=== PATIENT | female | born 1990 | race Caucasian/White ===

== ENCOUNTER 2019-12-10 15:17 | Outpatient (CLI) | payer OTHER, SELFPAY ==
--- NOTE | ~2019-12-10 | US_ITS ---
EXAMINATION: US OB <= 14 weeks fetus DATE: 12/10/2019 16:20 INDICATION: First trimester dating TECHNIQUE: Real-time pelvic transabdominal and transvaginal ultrasound was performed. COMPARISON: None. FINDINGS: The uterus measures 9.0 x 6.1 x 8.0 cm. There is an intrauterine gestational sac. A yolk s ac is identified. heart motion is identified measuring 133 beats per minute (bpm) by M-mode Dop pler. The crown rump length measures 8 mm , which correlates with an estimated gestational age of 6 weeks and 5 day(s) (+/-) 4 day(s). The right ovary measures 3.1 x 2.1 x 2.0 cm. The left ovary measures 3.2 x 2.3 x 3.0 cm. There is nor mal vascular flow in the ovaries. There is no free fluid in the pelvis. IMPRESSION: 1. Live intrauterine with an estimated gestational age of 6 weeks and 5 day(s) (+/-) 4 day( s) and an estimated delivery date of 07/30/2020. Reviewed, dictated and finalized at location A. IMPRESSION: 1. Live intrauterine with an estimated gestational age of 6 weeks and 5 day(s) (+/-) 4 day(s) and an estimated delivery date of 07/30/2020.
== END 2019-12-10 15:18 | disposition home or self-care (01) ==
PROVIDERS: PCP Physician Assistant; Visit Provider Obstetrics & Gynecology
DX: Z34.81 Encounter for supervision of other normal pregnancy, first trimester (principal); Z3A.01 Less than 8 weeks gestation of pregnancy
CPT/HCPCS: 76801

== ENCOUNTER 2020-01-10 15:39 | Outpatient (CLI) | payer OTHER, SELFPAY ==
--- NOTE | ~2020-01-10 | US_ITS ---
EXAMINATION: US OB <= 14 weeks fetus DATE: 01/10/2020 16:17 INDICATION: Routine care during first trimester of TECHNIQUE: Real-time pelvic ultrasound utilizing both a transvaginal and transabdominal probe was pe rformed. The interpreting radiologist was not present for the study. COMPARISON: 12/10/2019 FINDINGS: The uterus measures 12.8 x 7.1 x 9.5 cm. There is an intrauterine gestational sac. A single living f etus is identified. The crown rump length measures 5.3 cm, which is concordant but at the upper range for the previously estimated gestational age of 11 weeks and 1 days based upon the crown rump length measurement on the earlier ultrasound. heart motion is identified measuring 157 beats per nara te (bpm) by M-mode Doppler. The right ovary measures 3.4 x 1.5 x 1.7 cm. The left ovary measures 3.3 x 2.4 x 2.4 cm. There is no free fluid in the pelvis. IMPRESSION: 1. Single living fetus with heart rate of 157 bpm. 2. [place]-rump length of 5.3 cm which concordant with but at the upper range of length for previously estimated gestational age by ultrasound of 11 weeks 1 day with ultrasound estimated date of delivery (JOSSUE) of 07/30/2020. Reviewed, dictated and finalized at location . RAL WORKERS
== END 2020-01-10 15:40 | disposition home or self-care (01) ==
PROVIDERS: PCP Physician Assistant; Visit Provider Obstetrics & Gynecology
DX: Z34.91 Encounter for supervision of normal pregnancy, unspecified, first trimester (principal); Z3A.11 11 weeks gestation of pregnancy
CPT/HCPCS: 76801

== ENCOUNTER 2020-02-29 12:35 | Outpatient (CLI) | payer OTHER, SELFPAY ==
--- NOTE | ~2020-02-29 | US_ITS ---
EXAMINATION: US OB /maternal detail DATE: 02/29/2020 13:38 INDICATION: anatomic survey. TECHNIQUE: Real-time ultrasound of the pelvis was performed. COMPARISON: Ultrasound 01/10/2020, 12/10/2019 FINDINGS: There is a single living fetus in variable presentation. The placenta is anterior, 3.6 cm from the c ervix. heart rate is 131 beats per minute (bpm). The amniotic fluid index is 12.1 cm, which is normal. The following biometric data were obtained: Biparietal diameter (BPD): 4.4 cm; head circumference (HC): 17.7 cm; abdominal circumference (AC): 15 .1 cm; femur length (FL): 3.0 cm. These measurements are concordant. Estimated weight is 319 g +/- 48 g, which correlates with >97th percentile when 07/30/20 is used as estimated date of delivery. As single measurements, these parameters are each equal to the following estimated gestational ages w ith ranges of +/- 2 standard deviations: BPD: 19 weeks 1 days (17 weeks 3 days - 20 weeks 6 days). HC: 20 weeks 1 days (18 weeks 5 days - 21 weeks 5 days). AC: 20 weeks 2 days (18 weeks 2 days - 22 weeks 3 days). FL: 19 weeks 2 days (17 weeks 4 days - 21 weeks 1 days). estimated gestational age based solely on measurements from this exam is 19 weeks 5 days +/- 1 weeks 3 days. The cerebral ventricles, cerebellum, cisterna magna, nuchal fold, and visualized portions of the spin e are normal. There are small choroid plexus cysts. The heart is normal. The diaphragm, stomach, kidn eys, and bladder are normal. There are two umbilical arteries to yield a 3-vessel cord. The cord inse rtion is normal. IMPRESSION: 1. Single living fetus in variable presentation. 2. Estimated weight is 319 g +/- 48 g, which correlates with >97th percentile when 07/30/20 is u sed as estimated date of delivery. This date was set by ultrasound on 12/10/19. 3. Choroid plexus cysts. Reviewed, dictated and finalized at location A. UCTION MATERIAL COORDINATOR IMPRESSION: 1. Single living fetus in variable presentation. 2. Estimated weight is 319 g +/- 48 g, which correlates with >97th perce ntile when 07/30/20 is used as estimated date of delivery. This date was set by [facility] on 12/10/19. 3. Choroid plexus cysts.
== END 2020-02-29 12:36 | disposition home or self-care (01) ==
PROVIDERS: PCP Physician Assistant; Visit Provider Obstetrics & Gynecology
DX: Z34.82 Encounter for supervision of other normal pregnancy, second trimester (principal); Z3A.19 19 weeks gestation of pregnancy
CPT/HCPCS: 76805

== ENCOUNTER 2020-03-24 11:37 | Observation (INO) | payer OTHER, SELFPAY ==
--- NOTE | ~2020-03-24 | US_ITS ---
EXAMINATION: US OB limited EXAM DATE: 03/24/2020 13:27 INDICATION: well being, placenta check. Vaginal bleeding. 2nd trimester. TECHNIQUE: Pelvic obstetrical transabdominal sonogram was performed by a technologist. There are mu ltiple grayscale and Doppler images available for interpretation. Comparison is made to prior examina tion from 02/29/2020. FINDINGS: There is a single fetus identified in transverse presentation with head to maternal r ight side, and a heart rate of 150 beats per minute. The placenta is located in the anterior position . Placental margin to internal cervical os distance is 4.3 cm. There is no sonographic evidence of retroplacental hemorrhage identified. The amniotic fluid index is 19.1 centimeters, which is normal. Amniotic fluid is hypoechoic rather than anechoic, could contain meconium or debris. IMPRESSION: 1. Single fetus in transverse presentation with heart rate 150 beats per minute. 2. Unremarkable anteriorly located placenta. 3. Normal NIR 19 cm. Reviewed, dictated and finalized at location A. NICS REPAIR TECHNICIAN IMPRESSION: 1. Single fetus in transverse presentation with heart rate 150 beats per minut e. 2. Unremarkable anteriorly located placenta. 3. Normal NIR 19 cm.
[2020-03-24 11:56] VITALS: BP 106/62; PULSE 85
[2020-03-24 12:00] VITALS: BP 108/66; PULSE 85
[2020-03-24 13:00] VITALS: BP 116/70; PULSE 83
--- NOTE | 2020-03-24 16:44 | OBADM ---
This patient, Marcelina Bond, admitted to the OB room OB Post 113 for observation. Patient/family oriented to hospital policies and general routines including ID bracelet, bed and alarms, visiting hours, pain management, procedures, bathroom and other care routines, personal items, smoking policy, room service/diet, and visiting hours. Patient/Family are encouraged to report perceived risks to care and to ask questions if they do not understand what they are told or what they should do.
--- NOTE | 2020-03-30 06:01 | PM.OBTRLD ---
OB - Triage/Final Diagnosis Visit Information Comments/Additional reasons for admission: I have assessed the risk for this patient, Marcelina Bond, and determined that she would benefit from observation care. Final Diagnosis (1) Spotting affecting : Code(s): O26.859 - Spotting complicating , unspecified trimester Status: Acute
== END 2020-03-24 13:52 | disposition home or self-care (01) ==
PROVIDERS: Admitting Provider Obstetrics & Gynecology; PCP Physician Assistant; Visit Provider Obstetrics & Gynecology
DX: O26.852 Spotting complicating pregnancy, second trimester (principal); Z3A.21 21 weeks gestation of pregnancy
CPT/HCPCS: 76815; G0378; G0379

== ENCOUNTER 2020-03-30 14:23 | Observation (INO) | payer OTHER, SELFPAY ==
[2020-03-30 15:03] VITALS: BP 114/58; PULSE 94
[2020-03-30 15:16] VITALS: BP 111/71; PULSE 106
[2020-03-30 15:33] VITALS: BMI 19.7
--- NOTE | 2020-04-28 20:56 | P.PNOB_ITS ---
OB - Triage/Final Diagnosis Visit Information Comments/Additional reasons for admission: I have assessed the risk for this patient, Marcelina Bond, and determined that she would benefit from observation care. Final Diagnosis (1) Premature uterine contractions causing threatened premature labor in second trimester: Code(s): O47.02 - False labor before 37 completed weeks of gestation, second trimester Status: Acute (2) PROM (premature rupture of membranes): Code(s): O42.90 - Premature rupture of membranes, unspecified as to length of time be tween rupture and onset of labor, unspecified weeks of gestation Status: Acute
== END 2020-03-30 15:25 | disposition home or self-care (01) ==
PROVIDERS: Admitting Provider Obstetrics & Gynecology; PCP Physician Assistant; Visit Provider Obstetrics & Gynecology
DX: O47.02 False labor before 37 completed weeks of gestation, second trimester (principal); Z3A.22 22 weeks gestation of pregnancy
CPT/HCPCS: G0378; G0379

== ENCOUNTER 2020-03-31 13:31 | Outpatient (RCR) | payer OTHER, SELFPAY ==
--- NOTE | ~2020-03-31 | US_ITS ---
EXAMINATION: US OB limited DATE: 03/31/2020 14:42 INDICATION: Abdominal injury. Second trimester. TECHNIQUE: Real-time ultrasound of the pelvis was performed. COMPARISON: Ultrasound 03/24/2020 FINDINGS: There is a single fetus in breech presentation. The placenta is anterior. heart rate is 144 be ats per minute (bpm). The amniotic fluid volume is subjectively normal. IMPRESSION: 1. Single living fetus in breech presentation. 2. Normal placenta. Reviewed, dictated and finalized at location A. AZZO WORKER APPRENTICE
--- NOTE | 2020-03-31 13:37 | PC.NURSE ---
Dr. Murillo informed of this pt's arrival after being unable to get U/S to check placenta done as an outpatient due to it not being preauthorized. Pt c/o lower abdominal tenderness since her fall yesterday. Denies leakage of fluid and vaginal bleeding. Order received to doppler FHT's and order U/S to check placenta. Pt is to PO hydrate.
--- NOTE | 2020-03-31 13:57 | PC.NURSE ---
Pt given water pitcher with instructions to PO hydrate. monitor applied.
--- NOTE | 2020-03-31 14:13 | PC.NURSE ---
Dr. Murillo on unit and viewed monitor tracing. OK to discontinue monitoring of this 22 wk .
[2020-03-31 14:17] VITALS: BP 102/56; PULSE 80
--- NOTE | 2020-03-31 14:45 | PC.NURSE ---
Dr. Murillo informed pt back from U/S, but report not available yet. OK to let pt go home.
--- NOTE | 2020-03-31 19:29 | PM.OBTRLD ---
OB - Triage/Final Diagnosis Visit Information Reason for evaluation: other (Abdominal trauma from [place] in her house) Comments/Additional reasons for admission: I have assessed the risk for this patient, Marcelina Bond, and determined that she would benefit from observation care. Evaluation Baseline heart rate: 140 Variability: Moderate (11-25) monitor accelerations: Present monitor decelerations: None Vital signs: Vital Signs - 24 hr 03/31/20 14:17 Pulse Rate 80 Blood Pressure 102/56 L Final Diagnosis (1) with 22 completed weeks gestation: Code(s): Z3A.22 - 22 weeks gestation of Status: Acute (2) History of blunt trauma to abdomen: Code(s): Z87.828 - Personal history of other (healed) physical injury and trauma Status: Acute
== END 2020-04-12 08:01 | disposition home or self-care (01) ==
LOC: ANHOBOP 13:31
PROVIDERS: PCP Physician Assistant; Visit Provider Obstetrics & Gynecology
DX: O99.891 Other specified diseases and conditions complicating pregnancy (principal); Z87.828 Personal history of other (healed) physical injury and trauma; Z3A.22 22 weeks gestation of pregnancy
CPT/HCPCS: 76815

== ENCOUNTER 2020-04-03 16:48 | Observation (INO) | payer OTHER, SELFPAY ==
[2020-04-03] VITALS (31 sets, daily range): BP systolic 102–120; BP diastolic 43–61; PULSE 88–114; RESP 20; TEMP 36.4–36.6; O2SAT 97–100; BMI 19.7
--- NOTE | ~2020-04-03 | US_ITS ---
EXAMINATION: US OB limited DATE: 04/03/2020 17:55 INDICATION: Cramping and leaking fluids. Positive rupture of membranes during second trimester pregna ncy. TECHNIQUE: Real-time ultrasound of the pelvis was performed. The interpreting radiologist was not pre sent for the study. COMPARISON: None. FINDINGS: There is a single living fetus in transverse lie with vertex to maternal right. The placenta is ante rior and not low-lying with caudal margin 9 cm the internal cervical os. Normal cervical length of 4. 8 cm with no evident funneling. heart rate is 139 beats per minute (bpm). The amniotic fluid in dex is 14.8 cm, which is normal (5th%-95%: 9.8-21.8 cm at 23 weeks estimated gestational age). IMPRESSION: 1. Single living fetus in transverse lie with heart rate of 139 bpm. 2. Normal anterior placenta and cervix with normal cervical length of 4.8 cm. 3. Normal amniotic fluid index of 14.8 cm. Reviewed, dictated and finalized at location A. OWAVE RADIO TECHNICIAN
--- NOTE | 2020-04-03 17:40 | OBADM ---
This patient, Marcelina Bond, admitted to the OB room OB Post 116 for observation. Patient/family oriented to hospital policies and general routines including ID bracelet, bed and alarms, visiting hours, pain management, procedures, bathroom and other care routines, personal items, smoking policy, room service/diet, and visiting hours. Patient/Family are encouraged to report perceived risks to care and to ask questions if they do not understand what they are told or what they should do.
[2020-04-03 18:18] LABS: Basophils Percent Auto 0.2 % (0.2-1.2); Eosinophils Absolute Auto 0.1 K/mm3 (0-0.3); Eosinophils Percent Auto 0.4 % (0-4.4); Hematocrit 33.6 % (37.0-47.0); Immature Granulocyte Absolute 0.05 K/mm3 (0.00-0.031); Immature Granulocyte Percent A 0.4 % (0-0.5); Lymphocytes Absolute Auto 1.35 K/mm3 (0.9-3.2); Lymphocytes Percent Auto 11.6 % (18.3-44.2); Mean Corpuscular HGB Conc 35.7 g/dl (32-36); Mean Corpuscular Hemoglobin 34.5 pg (26-34); Mean Corpuscular Volume 96.6 fl (80-100); Mean Platelet Volume 10.1 fl (7.4-10.4); Monocytes Absolute Auto 0.5 K/mm3 (0.1-0.6); Monocytes Percent Auto 4.5 % (2.6-8.5); Neutrophils Absolute Auto 9.7 K/mm3 (1.3-6.7); Neutrophils Percent Auto 82.9 % (45.5-73.1); Platelet Count Result 224 k/mm3 (150-375); Red Blood Count 3.48 M/mm3 (4.2-5.4); Red Cell Distribution Width 12.8 % (11.5-14.5); White Blood Count 11.7 K/mm3 (4.5-10.0)
[2020-04-03] MEDS: LACTATED RINGERS 1,000 ML 999 ML IV CONT (18:21)
[2020-04-03] MEDS: ceFAZolin 2 GM/D5W 50 ML 2 GM/50 ML BAG IVPB (18:22)
[2020-04-03 18:24] LABS: Add Urine Microscopic? YES; Amorphous Sediment Urine Few; Appearance Urine Clear (Clear); Bacteria Urine Trace /hpf; Bilirubin Urine Negative (Negative); Blood Urine Negative (Negative); Color Urine Colorless (Yellow); Glucose Urine UA Negative (Negative); Ketones Urine Negative (Negative); Leukocyte Esterase Ur 1+ LEU/UL (NEGATIVE); Nitrate Urine Negative (Negative); Protein Urine Negative (Negative); Squamous Epithelial Cell Urine Few /hpf (Few); Urobilinogen Urine Negative mg/dL (<2.0)
[2020-04-03] MEDS: TERBUTALINE SULFATE 1 MG/ML VIAL 0.25 MG SUB-Q ×2 (18:25→21:00)
[2020-04-03 18:26] LABS: Specific Grav Ur 1.003 (1.001-1.035)
[2020-04-03 18:30] LABS: Alanine Aminotransferase 35 U/L (4-35); Albumin Level 3.8 g/dL (3.5-5.1); Alkaline Phosphatase 98 U/L (38-126); Anion Gap 7 mmol/L (8-16); Aspartate Amino Transferase 32 U/L (14-36); Bilirubin,Total 0.4 mg/dL (0.2-1.3); Blood Urea Nitrogen 10 mg/dL (7-17); Calcium 8.9 mg/dL (8.4-10.2); Carbon Dioxide 23 mmol/L (22-30); Chloride 105 mmol/L (98-107); Estimated CRCL calculation 119 ml/min; Estimated Glomerular Filt Rate > 60; Glucose 74 mg/dL (65-105); Potassium 3.6 mmol/L (3.4-5.0); Sodium 135 mmol/L (137-145)
--- NOTE | 2020-04-03 18:59 | PM.OBTRLD ---
OB - Triage/Final Diagnosis Visit Information Date of evaluation: 04/03/20 Reason for evaluation: threatened labor Comments/Additional reasons for admission: I have assessed the risk for this patient, Marcelina Bond, and determined that she would benefit from observation care. Evaluation Baseline heart rate: 133 Variability: Average (6-10) monitor accelerations: Present monitor decelerations: None Cervical dilation (cm): 0 Cervical effacement (%): 0 station: -4 Laboratory results: Laboratory Tests 04/03/20 04/03/20 04/03/20 18:10 18:10 18:11 WBC 11.7 H RBC 3.48 L Hgb 12.0 Hct 33.6 L MCV 96.6 MCH 34.5 H MCHC 35.7 RDW 12.8 Plt Count 224 MPV 10.1 Immature Gran % (Auto) 0.4 Neut % (Auto) 82.9 H Lymph % (Auto) 11.6 L [place] % (Auto) 4.5 Eos % (Auto) 0.4 Baso % (Auto) 0.2 Lymph # (Auto) 1.35 [place] # (Auto) 0.5 Eos # (Auto) 0.1 Baso # (Auto) 0.0 Abs Immat Gran (auto) 0.05 H Absolute Neuts (auto) 9.7 H Absolute Nucleated RBC 0.0 Nucleated RBC % 0.0 Sodium 135 L Potassium 3.6 Chloride 105 Carbon Dioxide 23 Anion Gap 7 L BUN 10 Creatinine 0.50 L Estim Creat Clear Calc 119 Estimated GFR > 60 Glucose 74 Calcium 8.9 Total Bilirubin 0.4 AST 32 ALT 35 Alkaline Phosphatase 98 Total Protein 7.0 Albumin 3.8 Urine Color Colorless Urine Appearance Clear Urine pH 7.0 Ur Specific [place] 1.003 Urine Protein Negative Urine Glucose (UA) Negative Urine Ketones Negative Ur Blood (Man) Negative Urine Nitrate Negative Urine Bilirubin Negative Urine Urobilinogen Negative Ur Leukocyte Esterase 1+ H Urine RBC 3-5 H Urine WBC 4-6 H Ur Squamous Epith Cells Few Amorphous Sediment Few H Urine Bacteria Trace Vital signs: Vital Signs - 24 hr 04/03/20 18:18 04/03/20 18:19 04/03/20 18:24 Pulse Rate Blood Pressure Pulse Oximetry 100 100 99 04/03/20 18:29 04/03/20 18:34 04/03/20 18:35 Pulse Rate 95 Blood Pressure 120/61 Pulse Oximetry 100 100 04/03/20 18:39 04/03/20 18:44 04/03/20 18:45 Pulse Rate 98 Blood Pressure 113/61 Pulse Oximetry 100 100 04/03/20 18:49 04/03/20 18:54 04/03/20 18:59 Pulse Rate Blood Pressure Pulse Oximetry 100 100 100 Final Diagnosis (1) Premature uterine contractions causing threatened premature labor in second trimester: Code(s): O47.02 - False labor before 37 completed weeks of gestation, second trimester Status: Acute (2) Vaginal discharge: Code(s): N89.8 - Other specified noninflammatory disorders of vagina Status: Acute
[2020-04-03] MEDS: NIFEdipine 30 MG TAB.ER.24 PO (22:00)
== END 2020-04-03 22:15 | disposition home or self-care (01) ==
PROVIDERS: Admitting Provider Obstetrics & Gynecology; PCP Physician Assistant; Visit Provider Obstetrics & Gynecology
DX: O47.9 False labor, unspecified (principal); O47.02 False labor before 37 completed weeks of gestation, second trimester; Z3A.00 Weeks of gestation of pregnancy not specified; N89.8 Other specified noninflammatory disorders of vagina
CPT/HCPCS: 36415; 76815; 80053; 81001; 84112; 85025; 87070; 87075; 87086; 87088; 87147; 87205; 87491; 87591; 96365; 96366; 96367; 96372; A9270; G0378; G0379; J0456; J0690; J3105; J7120

== ENCOUNTER 2020-08-12 10:50 | Emergency (ER) | payer OTHER, SELFPAY ==
--- NOTE | ~2020-08-12 | CT_ITS ---
EXAMINATION: CT abdomen pelvis w con INDICATION: Lower abdominal pain TECHNIQUE: Computed tomographic images of the abdomen and pelvis were obtained after the administrati on of 100 cc of Omnipaque 350 intravenous contrast. The dose-length product (DLP) was 163.28 mGy-cm. Automated exposure control and iterative reconstruction technique were employed. COMPARISON: None available FINDINGS: Minimal dependent atelectasis is present in the lung bases. The heart size is normal. The l iver, spleen, pancreas, gallbladder, and adrenal glands are normal. The kidneys are unremarkable. The re is a 2 mm calcification of the right pelvis projecting near the expected location of the ureterove sicular junction although the distal ureters are not definitely identified. No pathologically enlarge d abdominal or pelvic lymph nodes are identified. There is no free intraperitoneal gas or evidence of bowel obstruction. A large volume of colonic stool is present. IMPRESSION: 1. 2 mm calcification of the right pelvis which could be at the right ureterovesicular junction. The distal ureter is not well demonstrated. Reviewed, dictated and finalized at location A. IMPRESSION: 1. 2 mm calcification of the right pelvis which could be at the right ureterove sicular junction. The distal ureter is not well demonstrated.
[2020-08-12 10:57] VITALS: BP 109/69; PULSE 70; RESP 18; TEMP 36.9; O2SAT 100
[2020-08-12 11:22] LABS: Basophils Percent Auto 0.7 % (0.2-1.2); Eosinophils Absolute Auto 0.1 K/mm3 (0-0.3); Eosinophils Percent Auto 1.2 % (0-4.4); Hematocrit 40.6 % (37.0-47.0); Hemoglobin 13.9 g/dL (12.0-15.0); Immature Granulocyte Absolute 0.01 K/mm3 (0.00-0.031); Immature Granulocyte Percent A 0.2 % (0-0.5); Mean Corpuscular HGB Conc 34.2 g/dl (32-36); Mean Corpuscular Hemoglobin 32.5 pg (26-34); Mean Corpuscular Volume 94.9 fl (80-100); Mean Platelet Volume 10.8 fl (7.4-10.4); Monocytes Absolute Auto 0.4 K/mm3 (0.1-0.6); Monocytes Percent Auto 8.1 % (2.6-8.5); Neutrophils Absolute Auto 2.3 K/mm3 (1.3-6.7); Neutrophils Percent Auto 52.8 % (45.5-73.1); Platelet Count Result 209 k/mm3 (150-375); Red Blood Count 4.28 M/mm3 (4.2-5.4); Red Cell Distribution Width 12.9 % (11.5-14.5); White Blood Count 4.3 K/mm3 (4.5-10.0)
[2020-08-12 11:28] LABS: Add Urine Microscopic? YES; Appearance Urine Clear (Clear); Bacteria Urine Trace /hpf; Bilirubin Urine Negative (Negative); Blood Urine 3+ (Negative); Color Urine Yellow (Yellow); Glucose Urine UA Negative (Negative); Ketones Urine Negative (Negative); Leukocyte Esterase Ur Negative LEU/UL (Negative); Mucus Urine Rare /lpf; Nitrate Urine Negative (Negative); Protein Urine 1+ mg/dL (Negative); RBC Urine >75 /hpf (0-2); Specific Grav Ur 1.016 (1.001-1.035); Squamous Epithelial Cell Urine Many /hpf (Few); Urobilinogen Urine Negative mg/dL (<2.0); WBC Urine 0-3 /hpf
[2020-08-12 11:35] LABS: Alanine Aminotransferase 143 U/L (4-35); Albumin Level 4.7 g/dL (3.5-5.1); Alkaline Phosphatase 63 U/L (38-126); Anion Gap 10 mmol/L (8-16); Aspartate Amino Transferase 74 U/L (14-36); Bilirubin,Total 0.9 mg/dL (0.2-1.3); Blood Urea Nitrogen 11 mg/dL (7-17); Calcium 9.7 mg/dL (8.4-10.2); Carbon Dioxide 25 mmol/L (22-30); Chloride 106 mmol/L (98-107); Estimated CRCL calculation 78 ml/min; Estimated Glomerular Filt Rate > 60; Glucose 87 mg/dL (65-105); Lipase 64 U/L (23-300); Potassium 3.9 mmol/L (3.4-5.0); Sodium 141 mmol/L (137-145)
[2020-08-12 12:48] VITALS: BP 107/71; PULSE 50; RESP 18; O2SAT 100
--- NOTE | 2020-08-12 13:59 | ED.ABDPAIN ---
HPI - Abdominal Pain General Chief Complaint: Abdominal Pain Stated Complaint: abd pain, heavy bleeding Time Seen by Provider: 08/12/20 11:08 Source: patient Mode of arrival: ambulatory Limitations: no limitations History of Present Illness HPI narrative: 30-year-old with no major medical problems history of 3 C-sections the last one was about 4 months ago here with complaints of lower abdominal pain and heavy vaginal bleeding. Patient states this is her second. In the last 2 weeks. She denies passing any clots or being lightheaded. Patient states that she feels pain is just below her bellybutton and also feels there is something there that she is worried about. She states that she has seen her OB doctor who recommended to her to get an ultrasound and a CT scan but she is unable to get that scheduled. She denies any fever or chills. No history of nausea vomiting. MD elicited complaint: abdominal pain Pertinent past history: other ( on 4 months ago at [facility] [place]) Onset (ago): week(s) Pain Consistency: intermittent Location: suprapubic Severity: moderate Quality: aching Radiation: none Migration to: no migration Exacerbating factors: nothing Related Data Home Medications Medication Instructions Recorded Confirmed No Home Medications 08/12/20 08/12/20 Allergies Allergy/AdvReac Type Severity Reaction Status Date / Time No Known Allergies Allergy Verified 08/12/20 11:01 Review of Systems Review of Systems: All systems reviewed & are unremarkable except as noted in HPI and below Constitutional: Constitutional: Reports no additional constitutional complaints Eyes: Eyes: Reports no additional eye complaints ENT: Reports system reviewed and no additional complaints, except as documented Cardiovascular: Cardiovascular: Reports no additional cardiovascular complaints Gastrointestinal: Gastrointestinal: Reports no additional gastrointestinal complaints Musculoskeletal: Musculoskeletal: Reports no additional musculoskeletal complaints [facility] Past Medical History Medical History Head injury History of blunt trauma to abdomen Kidney disease Surgical History Surgical History History of x2 Family History Family History Father Alcoholism Grandparent Cerebrovascular accident Epilepsy Legal Guardian Heart disease Social History Social History Smoking status: Former smoker Second hand tobacco smoke exposure: No Alcohol intake: never Substance use: former Substance use type: former substance user 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 HEAD: Normocephalic, atraumatic. EYES: PERRLA and EOMI. ENT: Nares clear, no rhinorrhea or epistaxis. Mucous membranes moist. NECK: Supple. CHEST: Clear to auscultation. No respiratory distress. HEART: Regular rate and rhythm. No murmur heard. Normal peripheral pulses. ABDOMEN: Soft, nontender, nondistended, normal active bowel sounds. I did not elicit any mass EXTREMITIES: Normal range of motion. No edema. SKIN: Warm, dry, no rash. NEURO: No focal deficits. Alert and oriented x3. PSYCH: Normal mood and affect. Course Course Emergency Course: Patient comfortably lying on bed in no discomfort. I discussed labs, CT findings. There is no evidence of any mass on the CAT scan. I recommended her to follow-up with her ABSTRACT CHECKER. Meanwhile for pain recommended her to take ibuprofen or Tylenol. And drink plenty of fluids Vital Signs Vital signs: Vital Signs Temperature 36.9 C 08/12/20 10:57 Pulse Rate 70 08/12/20 10:57 Respiratory Rate
== END 2020-08-12 14:21 | disposition home or self-care (01) ==
PROVIDERS: Emergency Provider Family Medicine; PCP Physician Assistant
DX: R10.2 Pelvic and perineal pain (principal); N93.9 Abnormal uterine and vaginal bleeding, unspecified
CPT/HCPCS: 36415; 74177; 80053; 81001; 81025; 83690; 85025; 99284; Q9967